=== PATIENT | male | born 1955 | race Caucasian/White ===

== ENCOUNTER 2016-06-13 12:41 | Emergency (ER) | payer OTHER ==
[~2016-06-13] VITALS: Ht 170.2 cm; Wt 57.4 kg
[2016-06-13 12:46] VITALS: Ht 170.2 cm; Wt 57.4 kg
--- NOTE | 2016-06-13 12:51 | EMERGENCY ROOM VISIT NOTE ---
History Report prepared by Mercedes: David Brice Under the Supervision of: Dr. Mahesh Higuera M.D. First contact with patient: 12:47 Chief Complaint: MENTAL HEALTH EVALUATION Stated Complaint: MENTAL HEALTH History of Present Illness The patient is a 61 year old male who presents to the Emergency Room with complaints of persistent psychosis that started prior to arrival today. Per the immigration case manager, the patient is schizophrenic and saw his psychiatrist today for a medication check. The psychiatrist said that the patient was acting oddly and was agitated, screaming, kicking, and delusional. The psychiatrist then called EMS. The patient has not been taking his medications recently. He is currently still agitated, screaming, yelling, and uncooperative. Per the immigration case manager, when the patient is on his medications, he is very sweet. The patient is allergic to IV contrast and Augmentin. History limited secondary to patient's psychosis. Source of History: other (immigration case manager) Onset: Prior to arrival today Position: other (global - psychosis) Timing: other (persistent) Note: Associated symptoms: Agitated, screaming, kicking, delusional, uncooperative. Review of Systems ROS limited secondary to patient's psychosis.. Past Medical & Surgical Medical Problems: (1) Schizophrenia Family History Family history unobtainable secondary to patient's psychosis. Social History Social History: Social history unobtainable secondary to patient's psychosis. Current/Historical Medications Unable to Obtain Active Prescriptions or Reported Meds Physical Exam Vital Signs Date Time Temp Pulse Resp B/P Pulse Ox O2 Delivery O2 Flow Rate FiO2 06/13/16 14:20 72 15 133/74 96 Room Air 06/13/16 12:46 37.3 94 16 132/97 96 Room Air Physical Exam CONSTITUTIONAL: Agitated. Rambling, pressured speech. HEENT: No icterus, moist mucous membranes NECK: No meningismus, trachea is midline. CARDIOVASCULAR: Regular rate, normal perfusion RESPIRATORY: Unlabored breathing. Clear to auscultation. GASTROINTESTINAL: Non-tender GENITOURINARY: No flank tenderness MUSCULOSKELETAL: Full range of motion NEUROLOGIC: No acute gross focal deficits. PSYCHIATRIC: Normal affect SKIN: Normal for ethnicity. Medical Decision & Procedures Laboratory Results Test 06/13/16 14:23 Labs reviewed by ED physician. Medications Administered Medications (Trade) Dose Ordered Sig/Tiana Route Start Time Stop Time Status Last Admin Dose Admin Haloperidol Lactate (Haldol Inj) 5 mg NOW STAT IM 06/13/16 13:00 06/13/16 13:03 DC 06/13/16 13:00 5 MG Lorazepam (Ativan Inj) 1 mg NOW STAT IM 06/13/16 13:00 06/13/16 13:03 DC 06/13/16 13:00 1 MG Lorazepam (Ativan Tab) 1 mg NOW STAT PO 06/13/16 13:00 06/13/16 13:03 DC 06/13/16 13:00 1 MG ED Course 1251: Past medical records reviewed. The patient was evaluated in room A6. A complete history and physical examination was performed. 1300: Ordered Ativan Tab 1 mg PO, Ativan Inj 1 mg IM, Haldol Inj 5 mg IM. Medical Decision Differential diagnoses include: schizo-affective disorder. Impression Primary Impression: Schizo affective schizophrenia Additional Impression: Noncompliance Scribe Attestation The scribe's documentation has been prepared under my direction and personally reviewed by me in its entirety. I confirm that the note above accurately reflects all work, treatment, procedures, and medical decision making performed by me. Departure Information Dispostion Being Evaluated By Hospitalist Prescriptions Unable to Obtain Active Prescriptions or Reported Meds Patient Instructions My [facility] Health Problem Qualifiers
[2016-06-13] MEDS ORDERED: HALOPERIDOL LACTATE 5 MG/ML 1 ML VIAL IM STA (13:00)
[2016-06-13] MEDS ORDERED: LORAZEPAM 1 MG TAB PO STA (13:00)
[2016-06-13] MEDS ORDERED: LORAZEPAM 2 MG/ML 1 ML VIAL IM STA (13:00)
[2016-06-13 14:55] LABS: HEMATOCRIT 33.7 % (42-52); MEAN CELL VOLUME 87.3 fL (80-100); MEAN CORPUSCULAR HEMOGLOBIN 29.3 pg (25-34); MEAN CORPUSCULAR HGB CONC 33.5 g/dl (32-36); MEAN PLATELET VOLUME 8.9 fL (7.4-10.4); PLATELET COUNT 522 K/uL (130-400); RED BLOOD COUNT 3.86 M/uL (4.7-6.1); WHITE BLOOD COUNT 10.92 K/uL (4.8-10.8)
[2016-06-13 15:09] VITALS: O2SAT 95
[2016-06-13 15:15] LABS: ALT/SGPT 48 U/L (12-78); BLOOD UREA NITROGEN 14 mg/dl (7-18); BUN/CREATININE RATIO 18.8 (10-20); CARBON DIOXIDE 23 mmol/L (21-32); CHLORIDE 100 mmol/L (98-107); CREATININE 0.75 mg/dl (0.60-1.40); GLUCOSE 94 mg/dl (70-99); POTASSIUM 3.8 mmol/L (3.5-5.1); SODIUM 134 mmol/L (136-145)
[2016-06-13 15:16] LABS: BASO % 1.2 %; BASO ABS # 0.13 K/uL (0-0.2); COMPLETE YES; EOS % 2.3 %; IG% 1.1 %; LYMPH % 15.8 %; LYMPH ABS # 1.72 K/uL (1.2-3.4); MONO % 8.6 %
[2016-06-13 15:25] LABS: ALB/GLOB RATIO 0.6 (0.9-2); ALKALINE PHOSPHATASE 59 U/L (45-117); AST/SGOT 30 U/L (15-37)
[2016-06-13] MEDS ORDERED: QUET1TAB37 PO (16:12)
[2016-06-13] MEDS ORDERED: LITH1TAB10 PO (16:12)
[2016-06-13] MEDS ORDERED: CGN1 PO (16:12)
[2016-06-13] MEDS ORDERED: QUET1TAB34 PO (16:12)
[2016-06-13] MEDS ORDERED: GABA1CAP5 PO (16:12)
[2016-06-13 17:59] LABS: URINE APPEARANCE CLEAR (CLEAR); URINE BILIRUBIN NEG (NEG); URINE COLOR YELLOW; URINE NITRITE NEG (NEG); URINE PH 6.5 (4.5-7.5); URINE SPECIFIC GRAVITY 1.004 (1.000-1.030); UROBILINOGEN NEG (NEG)
[2016-06-13 18:01] LABS: MANUAL MICROSCOPIC REQUIRED? NO; REVIEW REQ? NO
[2016-06-13 18:23] LABS: BENZODIAZEPINE, URINE NEG (NEG); COCAINE,URINE NEG (NEG); PHENCYCLIDINE, URINE NEG (NEG)
[2016-06-13 18:50] VITALS: BP 137/99; PULSE 96; TEMP 37.3; O2SAT 95
--- NOTE | 2016-06-13 22:34 | EMERGENCY ROOM VISIT NOTE ---
ED Visit Note First contact with patient: 16:07 Patient was signed out to me awaiting placement. He was medically cleared. I did independently evaluate the patient and did appear to be manic with racing thoughts. Nursing staff notes that this is how he presented initially to the ER. 3 O2 was signed. He was at that point except to the salgado and transferred to the outside facility.
== END 2016-06-13 18:15 ==
LOC: C.EDA 12:46
DX: F25.9 Schizoaffective disorder, unspecified (principal); Z91.14 Patient's other noncompliance with medication regimen